=== PATIENT | male | born 1960 | race Hispanic/Latino ===

== ENCOUNTER 2017-03-19 13:46 | Inpatient (IN) | payer BC ==
[2017-03-19] MEDS ORDERED: NACL 0.9% 1000 ML 1,000 ML IV ONE (14:24)
[2017-03-19] MEDS ORDERED: MORPHINE IV ONE (14:24)
[2017-03-19] MEDS ORDERED: ZOFRAN IV ONE (14:24)
--- NOTE | 2017-03-19 14:30 | Emergency Department Report ---
ED Abdominal Pain HPI - General Chief Complaint: Abdominal Pain Stated Complaint: R/O APPY Time Seen by Provider: 03/19/17 14:17 Source: patient Mode of arrival: Ambulatory Limitations: No Limitations - History of Present Illness Initial Comments: Patient is 56 years old male with no significant past medical history except for benign prostatic hypertrophy and history of kidney stone. Patient presented with abdominal pain that started this morning, pain is localized to the right lower quadrant and suprapubic area. Patient stated that he has been nausea but no vomiting. Patient denied any fever. MD Complaint: abdominal pain -: This morning Location: RLQ, suprapubic Radiation: none Migration to: no migration Quality: stabbing Consistency: constant Worsens With: nothing Associated Symptoms: nausea - Related Data Allergies Allergy/AdvReac Type Severity Reaction Status Date / Time acetaminophen [From Lortab] Allergy Nausea Verified 03/19/17 13:50 hydrocodone [From Lortab] Allergy Nausea Verified 03/19/17 13:50 ED Review of Systems ROS: Stated complaint: R/O APPY Other details as noted in HPI Comment: All other systems reviewed and negative Constitutional: denies: chills, fever Respiratory: denies: cough, orthopnea, shortness of breath, SOB with exertion, wheezing Cardiovascular: denies: chest pain, palpitations, dyspnea on exertion, orthopnea Gastrointestinal: abdominal pain, nausea. denies: vomiting, diarrhea, constipation, hematemesis, melena, hematochezia Musculoskeletal: denies: back pain, joint swelling Neurological: denies: headache, weakness, numbness, paresthesias ED Past Medical Hx - Past Medical History Additional medical history: Moderate kidney disease, prostate issues, diverticulitis. - Surgical History Additional Surgical History: lipoma removed left abd - Social History Smoking Status: Never Smoker Substance Use Type: None ED Physical Exam - General Limitations: No Limitations General appearance: alert, in no apparent distress - Head Head exam: Present: atraumatic, normocephalic, normal inspection - Eye Eye exam: Present: normal appearance, PERRL - ENT ENT exam: Present: normal exam, normal orophraynx, mucous membranes moist - Neck Neck exam: Present: normal inspection, full ROM. Absent: tenderness, meningismus, lymphadenopathy, thyromegaly - Respiratory Respiratory exam: Present: normal lung sounds bilaterally. Absent: respiratory distress, wheezes, rales, rhonchi, stridor, chest wall tenderness, accessory muscle use, decreased breath sounds, prolonged expiratory - Cardiovascular Cardiovascular Exam: Present: regular rate, normal rhythm, normal heart sounds - GI/Abdominal GI/Abdominal exam: Present: soft, tenderness, rebound, normal bowel sounds. Absent: distended, guarding, rigid, organomegaly, mass, bruit, pulsatile mass, hernia - Extremities Exam Extremities exam: Present: normal inspection, full ROM, normal capillary refill - Back Exam Back exam: Present: normal inspection, full ROM. Absent: tenderness, CVA tenderness (R), CVA tenderness (L), muscle spasm, paraspinal tenderness - Neurological Exam Neurological exam: Present: alert, oriented X3, CN II-XII intact, normal gait - Skin Skin exam: Present: warm, intact, normal color. Absent: cyanosis, diaphoretic, erythema ED Course Vital Signs 03/19/17 03/19/17 03/19/17 13:51 14:37 18:36 Temperature 97.9 F 97.6 F Pulse Rate 70 76 Respiratory 20 18 Rate Blood Pressure 135/92 Blood Pressure 139/93 [Left] O2 Sat by Pulse 98 Oximetry - Reevaluation(s) Reevaluation #1: 03/19/17 16:34 Patient stated that he is feeling much better. ED Medical Decision Making - Lab Data Result diagrams: 03/19/17 14:36 03/19/17 16:03 - Radiology Data Radiology results: report reviewed Referring Physician: MELE LR Patient Name: JOYCELYN PIERSON Date of : 1960 Sex: Male Report Date: 2017-03-19 Report Status: Finalized Findings [facility] [address] [place] [address] Cat Scan Report Signed Patient: JOYCELYN PIERSON MR#: [id number] : 1960 Acct:[id number] Age/Sex: 56 / M ADM Date: 03/19/17 Loc: ED Attending Dr: Ordering Physician: MELE LR Date of Service: 03/19/17 Procedure(s): CT abdomen pelvis w con Accession Number(s): [id number] cc: MOHAMED H. ELBASHA FINAL REPORT EXAM: CT ABDOMEN PELVIS W CON HISTORY: Abdominal Pain TECHNIQUE: CT examination of the ABDOMEN after IV contrast CT examination of the PELVIS after IV contrast PRIORS: None. FINDINGS: 9 mm pulmonary nodule in the right lower lobe lateral CP angle, series 3, image 32. 4 mm pulmonary nodule in right middle lobe, series 3, image 13 Surgically absent gallbladder. Normal-appearing liver, adrenals, pancreas, and spleen. Intact normal caliber abdominal aorta and IVC. Multiple simple appearing renal cysts. No renal calculus or hydronephrosis. No ureteral calculus or distention. Very small fat containing umbilical hernia. Small fat containing bilateral inguinal hernia. Normal-appearing stomach and duodenum. No retroperitoneal adenopathy. No definite mesenteric mass. No small bowel distention in the abdomen and pelvis. No pelvic free fluid. Normal-appearing urinary bladder and rectum. Enlarged prostate and seminal vesicles. Slight descending and moderate sigmoid diverticulosis. Moderate mural thickening in the distal sigmoid colon with adjacent fat stranding most compatible with acute diverticulitis. Slight thickening of the sigmoid mesocolon and trace free fluid in this region as well. No evidence of perforation or diverticular abscess. No gross ascites, free air, or colonic distention. Normal-appearing cecum, terminal ileum, and appendix. IMPRESSION: Right lung base nonspecific pulmonary nodules, largest 9 mm. Recommend followup chest CT to exclude other nodules. Findings most compatible with acute sigmoid diverticulitis Prostatomegaly Transcribed By: MELYSSA Dictated By: JESSICA POLK MD Electronically Authenticated By: JESSICA POLK MD Signed Date/Time: 03/19/171207 DD/ 07 TD/TT: 03/19/171207 - Medical Decision Making Discussed with Dr. Reina's, he advised to admit patient to his service and he will follow-up in the hospital. Critical care attestation.: If time is entered above; I have spent that time in minutes in the direct care of this critically ill patient, excluding procedure time. ED Disposition Clinical Impression: Abdominal pain, Acute diverticulitis Disposition: OP ADMIT IP TO THIS HOSP Is pt being admited?: Yes Condition: Stable
[2017-03-19 14:49] LABS: Basophils # (Auto) 0.1 K/mm3 (0.0-0.1); Basophils % (Auto) 0.5 % (0.0-1.8); Eosinophils # (Auto) 0.1 K/mm3 (0.0-0.4); Eosinophils % (Auto) 0.9 % (0.0-4.3); Hematocrit 50.9 % (35.5-45.6); Hemoglobin 17.1 gm/dl (11.8-15.2); Lymphocytes % (Auto) 18.9 % (13.4-35.0); Mean Corpuscular HGB Conc 34 % (32-34); Mean Corpuscular Hemoglobin 31 pg (28-32); Mean Corpuscular Volume 91 fl (84-94); Monocytes # (Auto) 0.7 K/mm3 (0.0-0.8); Monocytes % (Auto) 6.8 % (0.0-7.3); Platelet Count 209 K/mm3 (140-440); Red Blood Count 5.58 M/mm3 (3.65-5.03); Red Cell Distribution Width 15.5 % (13.2-15.2)
[2017-03-19 14:51] LABS: Bilirubin,Urine NEG (Negative); Blood,Urine NEG (Negative); Color,Urine Yellow (Yellow); Mucus,Urine FEW /HPF; Nitrite,Urine NEG (Negative); Protein,Urine <15 mg/dL mg/dL (Negative); WBC,Urine < 1.0 /HPF (0.0-6.0)
[2017-03-19 15:43] LABS: Blood Urea Nitrogen TNR mg/dL (9-20)
[2017-03-19 15:44] LABS: BUN/Creatinine Ratio TNR; Bilirubin,Direct TNR mg/dL (0-0.2); Calcium TNR mg/dL (8.4-10.2)
[2017-03-19 15:45] LABS: Alanine Aminotransferase TNR units/L (7-56); Albumin TNR g/dL (3.9-5); Hemolysis Index TNR
[2017-03-19 15:46] LABS: Lipase TNR units/L (13-60)
--- NOTE | 2017-03-19 16:11 | Cat Scan Report ---
FINAL REPORT EXAM: CT ABDOMEN PELVIS W CON HISTORY: Abdominal Pain TECHNIQUE: CT examination of the ABDOMEN after IV contrast CT examination of the PELVIS after IV contrast PRIORS: None. FINDINGS: 9 mm pulmonary nodule in the right lower lobe lateral CP angle, series 3, image 32. 4 mm pulmonary nodule in right middle lobe, series 3, image 13 Surgically absent gallbladder. Normal-appearing liver, adrenals, pancreas, and spleen. Intact normal caliber abdominal aorta and IVC. Multiple simple appearing renal cysts. No renal calculus or hydronephrosis. No ureteral calculus or distention. Very small fat containing umbilical hernia. Small fat containing bilateral inguinal hernia. Normal-appearing stomach and duodenum. No retroperitoneal adenopathy. No definite mesenteric mass. No small bowel distention in the abdomen and pelvis. No pelvic free fluid. Normal-appearing urinary bladder and rectum. Enlarged prostate and seminal vesicles. Slight descending and moderate sigmoid diverticulosis. Moderate mural thickening in the distal sigmoid colon with adjacent fat stranding most compatible with acute diverticulitis. Slight thickening of the sigmoid mesocolon and trace free fluid in this region as well. No evidence of perforation or diverticular abscess. No gross ascites, free air, or colonic distention. Normal-appearing cecum, terminal ileum, and appendix. IMPRESSION: Right lung base nonspecific pulmonary nodules, largest 9 mm. Recommend followup chest CT to exclude other nodules. Findings most compatible with acute sigmoid diverticulitis Prostatomegaly
[2017-03-19] MEDS ORDERED: MORPHINE IV PRN (16:31)
[2017-03-19] MEDS ORDERED: ZOFRAN IV PRN (16:31)
[2017-03-19 16:38] LABS: Calcium 8.2 mg/dL (8.4-10.2)
[2017-03-19] MEDS ORDERED: MORPHINE ONE (17:01)
[2017-03-19] MEDS ORDERED: ZOSYN/NS 3.375GM/50ML 3.375 GM/50 ML BAG IV SCH (18:00)
[2017-03-19] MEDS: NACL 0.9% 1000 ML 1,000 ML IV SCH (22:27)
[2017-03-19] MEDS: ZOSYN/NS 4.5GM/100ML 4.5 GM/100 ML VIAL IV SCH (22:48)
[2017-03-20] MEDS: RESTORIL PO PRN ×2 (01:36→23:21)
[2017-03-20] MEDS: MORPHINE IV PRN ×3 (01:37→13:33)
[2017-03-20] MEDS: NACL 0.9% 1000 ML 1,000 ML IV SCH ×3 (05:37→20:27)
[2017-03-20] MEDS: ZOSYN/NS 4.5GM/100ML 4.5 GM/100 ML VIAL IV SCH ×3 (06:29→23:19)
[2017-03-20 07:33] LABS: Calcium 8.2 mg/dL (8.4-10.2)
--- NOTE | 2017-03-20 08:26 | History and Physical Report ---
History of Present Illness Date of examination: 03/19/17 Date of admission: 03/19/17 16:29 Chief complaint: Lower abdominal pain X 2 days History of present illness: 56 yo male with a 2 day h/o lower abdominal pain. He denies associated fever, chills, urinary complaints, change in bowel habits, melena or hematochezia. The pain is constant and is slowly getting worse. He has had several prior episodes of diverticulitis but states that this pain feels different. The pain is made worse with movement. He had a colonoscopy last year which was remarkable only for diverticulosis. Past History Past Medical History: GERD, hypertension (BPH, gout) Medications and Allergies Allergies Allergy/AdvReac Type Severity Reaction Status Date / Time acetaminophen [From Lortab] Allergy Nausea Verified 03/19/17 13:50 hydrocodone [From Lortab] Allergy Nausea Verified 03/19/17 13:50 nsaids AdvReac Bleeding Uncoded 03/19/17 20:58 Home Medications Medication Instructions Recorded Confirmed Last Taken Type Esomeprazole Magnesium [Nexium] 40 mg PO DAILY 03/19/17 03/19/17 Unknown History Febuxostat [Uloric] 40 mg PO DAILY 03/19/17 03/19/17 Unknown History Silodosin [Rapaflo] 4 mg PO QHS 03/19/17 03/19/17 Unknown History Temazepam [Restoril] 30 mg PO QHS PRN 03/19/17 03/19/17 Unknown History Valsartan [Diovan] 40 mg PO DAILY 03/19/17 03/19/17 Unknown History Active Meds: Active Medications Sodium Chloride (Nacl 0.9% 1000 Ml) 1,000 mls @ 150 mls/hr IV DIRECT FELICIA Last Admin: 03/20/17 05:37 Dose: 150 mls/hr Piperacillin Sod/Tazobactam Sod (Zosyn/Ns 4.5gm/100ml) 4.5 gm in 100 mls @ 200 mls/hr IV Q8HR FELICIA PRN Reason: Protocol Last Admin: 03/20/17 06:29 Dose: 200 mls/hr Morphine Sulfate (Morphine) 2 mg IV Q4H PRN PRN Reason: Pain, Moderate (4-6) Last Admin: 03/20/17 07:45 Dose: 2 mg Ondansetron HCl (Zofran) 4 mg IV TID PRN PRN Reason: Nausea And Vomiting Temazepam (Restoril) 30 mg PO QHS PRN PRN Reason: Sleep Last Admin: 03/20/17 01:36 Dose: 30 mg Review of Systems All systems: negative Exam Vital Signs BP 131/75 03/19/17 08:11 - General physical appearance Positive: well developed, well nourished, no distress - Eyes Positive: PERRL, normal occular movement - ENT Positive: normal pinna, normal nares, normal mucosa, no hearing loss, no congestion - Neck Positive: no masses, no bruits, trachea midline, no venous distension - Respiratory Positive: normal expansion, normal respiratory effort, clear to auscultation - Cardiovascular Rhythm: regular Heart Sounds: Present: S1 & S2. Absent: rub, click - Extremities Extremities: no ischemia, pulses symmetrical, No edema - Breasts Breasts: deferred - Abdomen Abdomen: Present: other (Soft, ND, bowel sounds hypoactive, TTP in the RLQ and suprapubic areas with early guarding but no rebound. No masses or HSM.) Results - Labs 03/19/17 14:36 03/20/17 06:32 Abnormal lab results 03/19/17 03/19/17 03/20/17 Range/Units 14:36 16:03 06:32 RBC 5.58 H (3.65-5.03) M/mm3 Hgb 17.1 H (11.8-15.2) gm/dl Hct 50.9 H (35.5-45.6) % RDW 15.5 H (13.2-15.2) % Seg Neutrophils % 72.9 H (40.0-70.0) % Sodium 136 L (137-145) mmol/L Calcium 8.2 L 8.2 L (8.4-10.2) mg/dL Diabetes panel 03/19/17 03/19/17 03/20/17 Range/Units 14:36 16:03 06:32 Sodium TNR 136 L 139 Potassium TNR 4.8 5.0 Chloride TNR 101.7 103.5 Carbon Dioxide TNR 23 27 BUN TNR 16 13 Creatinine TNR 1.3 1.4 Glucose TNR 77 85 Calcium TNR 8.2 L 8.2 L AST TNR ALT TNR Alkaline Phosphatase TNR Total Protein TNR Albumin TNR Calcium panel 03/19/17 03/19/17 03/20/17 Range/Units 14:36 16:03 06:32 Calcium TNR 8.2 L 8.2 L Albumin TNR Pituitary panel 03/19/17 03/19/17 03/20/17 Range/Units 14:36 16:03 06:32 Sodium TNR 136 L 139 Potassium TNR 4.8 5.0 Chloride TNR 101.7 103.5 Carbon Dioxide TNR 23 27 BUN TNR 16 13 Creatinine TNR 1.3 1.4 Glucose TNR 77 85 Calcium TNR 8.2 L 8.2 L Adrenal panel 03/19/17 03/19/17 03/20/17 Range/Units 14:36 16:03 06:32 Sodium TNR 136 L 139 Potassium TNR 4.8 5.0 Chloride TNR 101.7 103.5 Carbon Dioxide TNR 23 27 BUN TNR 16 13 Creatinine TNR 1.3 1.4 Glucose TNR 77 85 Calcium TNR 8.2 L 8.2 L Total Bilirubin TNR AST TNR ALT TNR Alkaline Phosphatase TNR Total Protein TNR Albumin TNR - Imaging CT scan - abdomen: report reviewed CT scan - pelvis: report reviewed Assessment and Plan - Patient Problems (1) Hypertension Current Visit: Yes Status: Acute (2) Gout Current Visit: Yes Status: Acute (3) BPH (benign prostatic hyperplasia) Current Visit: Yes Status: Acute (4) GERD (gastroesophageal reflux disease) Current Visit: Yes Status: Acute (5) Umbilical hernia Current Visit: Yes Status: Acute (6) Bilateral inguinal hernia Current Visit: Yes Status: Acute (7) Right lower lobe lung mass Current Visit: Yes Status: Acute (8) Acute diverticulitis Current Visit: Yes Status: Acute Plan to address problem: 1) IV Zosyn 2) CLD 3) Continue home meds 4) CBC and BMP in the am
[2017-03-20] MEDS ORDERED: PERCOCET 5/325 PO PRN (08:39)
--- NOTE | 2017-03-20 08:56 | Progress Note ---
Assessment and Plan - Patient Problems (1) Hypertension Current Visit: Yes Status: Acute (2) Gout Current Visit: Yes Status: Acute (3) BPH (benign prostatic hyperplasia) Current Visit: Yes Status: Acute (4) GERD (gastroesophageal reflux disease) Current Visit: Yes Status: Acute (5) Umbilical hernia Current Visit: Yes Status: Acute (6) Bilateral inguinal hernia Current Visit: Yes Status: Acute (7) Right lower lobe lung mass Current Visit: Yes Status: Acute (8) Acute diverticulitis Current Visit: Yes Status: Acute Plan to address problem: 1) Continue CLD 2) Percocet 5/325 3) Check today's CBC 4) CBC and BMP in the am Subjective Date of service: 03/20/17 Patient Reports: Positive: no new complaints, still having pain, tolerating liquids well Objective Vital Signs - 12hr 03/19/17 03/20/17 03/20/17 22:00 00:15 00:17 Temperature 97.5 F L Pulse Rate 68 72 Pulse Rate [ 65 Right] Respiratory 20 20 18 Rate Blood Pressure 123/74 O2 Sat by Pulse 98 95 Oximetry - Abdomen other (Still with RLQ and suprapubic TTP. Possibly less guarding.) - Labs 03/19/17 14:36 03/20/17 06:32 Diabetes panel 03/19/17 03/19/17 03/20/17 Range/Units 14:36 16:03 06:32 Sodium TNR 136 L 139 Potassium TNR 4.8 5.0 Chloride TNR 101.7 103.5 Carbon Dioxide TNR 23 27 BUN TNR 16 13 Creatinine TNR 1.3 1.4 Glucose TNR 77 85 Calcium TNR 8.2 L 8.2 L AST TNR ALT TNR Alkaline Phosphatase TNR Total Protein TNR Albumin TNR Calcium panel 03/19/17 03/19/17 03/20/17 Range/Units 14:36 16:03 06:32 Calcium TNR 8.2 L 8.2 L Albumin TNR Pituitary panel 03/19/17 03/19/17 03/20/17 Range/Units 14:36 16:03 06:32 Sodium TNR 136 L 139 Potassium TNR 4.8 5.0 Chloride TNR 101.7 103.5 Carbon Dioxide TNR 23 27 BUN TNR 16 13 Creatinine TNR 1.3 1.4 Glucose TNR 77 85 Calcium TNR 8.2 L 8.2 L Adrenal panel 03/19/17 03/19/17 03/20/17 Range/Units 14:36 16:03 06:32 Sodium TNR 136 L 139 Potassium TNR 4.8 5.0 Chloride TNR 101.7 103.5 Carbon Dioxide TNR 23 27 BUN TNR 16 13 Creatinine TNR 1.3 1.4 Glucose TNR 77 85 Calcium TNR 8.2 L 8.2 L Total Bilirubin TNR AST TNR ALT TNR Alkaline Phosphatase TNR Total Protein TNR Albumin TNR
[2017-03-20] MEDS: HEPARIN SUB-Q SCH ×3 (11:14→23:22)
[2017-03-21] MEDS: ZOSYN/NS 4.5GM/100ML 4.5 GM/100 ML VIAL IV SCH ×2 (06:48→14:54)
[2017-03-21 07:38] LABS: Calcium 8.4 mg/dL (8.4-10.2)
[2017-03-21 07:55] LABS: Basophils % (Auto) 0.5 % (0.0-1.8); Eosinophils # (Auto) 0.1 K/mm3 (0.0-0.4); Eosinophils % (Auto) 1.8 % (0.0-4.3); Hematocrit 47.9 % (35.5-45.6); Hemoglobin 15.6 gm/dl (11.8-15.2); Lymphocytes # (Auto) 1.5 K/mm3 (1.2-5.4); Lymphocytes % (Auto) 29.5 % (13.4-35.0); Mean Corpuscular HGB Conc 33 % (32-34); Mean Corpuscular Hemoglobin 30 pg (28-32); Mean Corpuscular Volume 92 fl (84-94); Monocytes # (Auto) 0.5 K/mm3 (0.0-0.8); Monocytes % (Auto) 10.3 % (0.0-7.3); Platelet Count 170 K/mm3 (140-440); Red Blood Count 5.21 M/mm3 (3.65-5.03); Red Cell Distribution Width 15.4 % (13.2-15.2)
[2017-03-21] MEDS: NACL 0.9% 1000 ML 1,000 ML IV SCH (10:13)
[2017-03-21] MEDS: HEPARIN SUB-Q SCH (15:03)
[2017-03-21 17:04] VITALS: BP 128/87
== END 2017-03-21 18:53 | disposition home or self-care (01) | DRG 392 ==
LOC: ED 13:46 → 3A 16:29
PROVIDERS: ADMIT Surgery; ATTEND Surgery
PROC: 5A09357 Assistance with Respiratory Ventilation, Less than 24 Consecutive Hours, Continuous Positive Airway Pressure (ICD-10-PCS; principal; 2017-03-20)
DX: K57.92 Diverticulitis of intestine, part unspecified, without perforation or abscess without bleeding (principal); I10 Essential (primary) hypertension; M10.9 Gout, unspecified; N40.0 Benign prostatic hyperplasia without lower urinary tract symptoms; K21.9 Gastro-esophageal reflux disease without esophagitis; K42.9 Umbilical hernia without obstruction or gangrene; K40.20 Bilateral inguinal hernia, without obstruction or gangrene, not specified as recurrent; R91.8 Other nonspecific abnormal finding of lung field; Z88.8 Allergy status to other drugs, medicaments and biological substances
CPT/HCPCS: 36415; 74177; 80048; 80074; 81001; 85025; 94660; J1644; J2270; J2405; J2543; J7030; Q9967